=== PATIENT | female | born 1985 | race Two or more races ===

== ENCOUNTER 2016-12-02 05:24 | Emergency (ER) | payer SELFPAY ==
[~2016-12-02] VITALS: Ht 160 cm; Wt 52.2 kg
--- NOTE | 2016-12-02 06:19 | NUR ---
pt ambulatory w/ steady gait for c/o rlq abd pain, N/V x7 days w/ wt loss of 10lbs/wk and itching to whole body x 2 days, recently dx w/ rt kidney stones. AOx4, afebrile w/ resp even & unlabored, facial grimacing, continues to have nausea w/ no active vomiting, itching, denies diarrhea, no dysuria, no hematuria, moderate discomfort noted. pt in gown, on continuous monitoring. Pending further saroj arechiga MD.
--- NOTE | 2016-12-02 06:22 | NUR ---
DR. SANCHEZ AT BEDSIDE FOR FURTHER EVAL.
[2016-12-02] MEDS ORDERED: diphenhydrAMINE HCL 50 MG/ML VIAL IV ONE ×2 (06:30→08:30)
[2016-12-02] MEDS ORDERED: IV NS 0.9% 1,000 ML BAG IV ONE (06:30)
[2016-12-02] MEDS ORDERED: ONDANSETRON HCL/PF 4 MG/2 ML VIAL IVP ONE (06:30)
[2016-12-02] MEDS ORDERED: KETOROLAC TROMETHAMINE INJ 30 MG/ML VIAL IV ONE (06:30)
[2016-12-02] MEDS ORDERED: diphenhydrAMINE HCL 50 MG/ML VIAL ONE ×2 (06:40→08:32)
[2016-12-02] MEDS ORDERED: ONDANSETRON HCL/PF 4 MG/2 ML VIAL ONE ×2 (06:41→10:01)
[2016-12-02] MEDS ORDERED: KETOROLAC TROMETHAMINE INJ 30 MG/ML VIAL ONE (06:41)
[2016-12-02 06:42] LABS: BASOPHILS % (AUTO) 0.4 % (0.0-2.0); EOSINOPHILS % (AUTO) 0.5 % (0.0-6.0); HEMATOCRIT 33 % (33-45); LYMPHOCYTES # (AUTO) 3.1 /CMM (0.8-4.8); LYMPHOCYTES % (AUTO) 44.6 % (20.0-44.0); MEAN CORPUSCULAR HEMOGLOBIN 32 PG (26.0-33.0); MEAN CORPUSCULAR HGB CONC 33 g/dl (31.0-36.0); MEAN CORPUSCULAR VOLUME 95 fL (82-100); MONOCYTES # (AUTO) 0.3 /CMM (0.1-1.30); MONOCYTES % (AUTO) 3.7 % (2.0-12.0); NEUTROPHILS # (AUTO) 3.5 /CMM (1.8-8.9); NEUTROPHILS % (AUTO) 50.8 % (43.0-81.0); PLATELET COUNT (AUTO) 377 /CMM (150-450); RDW COEFFICIENT OF VARIATION 15.8 (11.5-15.0)
[2016-12-02 06:43] LABS: APPEARANCE,URINE CLEAR (CLEAR); BILIRUBIN,URINE NEGATIVE (NEGATIVE); BLOOD, URINE TRACE-INTA Ery/uL (NEGATIVE); COLOR,URINE YELLOW (YELLOW); KETONES,URINE NEGATIVE (NEGATIVE); LEUKOCYTE ESTERASE ,URINE NEGATIVE (NEGATIVE); NITRITE, URINE NEGATIVE (NEGATIVE); PH,URINE 6.5 (5.0-8.0); PROTEIN,URINE NEGATIVE (NEGATIVE); UGLUCOSE NEGATIVE (NEGATIVE); UROBILINOGEN,URINE 0.2 EU/dL (0.2)
[2016-12-02 06:46] LABS: BACTERIA,URINE Few /HPF (None Seen); WBC,URINE 0-2 /HPF (0-3)
[2016-12-02 06:47] LABS: PREGNANCY TEST URINE QUAL NEGATIVE (NEGATIVE)
[2016-12-02 06:57] LABS: POTASSIUM 3.4 mmol/L (3.5-5.1)
--- NOTE | 2016-12-02 07:09 | NUR ---
pt report continues to have sharp rlq abd pain, worse than before. Dr. Oneal notified.
[2016-12-02 07:13] LABS: ALBUMIN 3.3 g/dL (3.4-5.0); BILIRUBIN,TOTAL 0.2 mg/dL (0.2-1.0); CALCIUM, SERUM 8.2 mg/dL (8.5-10.1); CREATININE 0.8 mg/dL (0.6-1.3); TOTAL PROTEIN, SERUM 6.7 g/dL (6.4-8.2)
--- NOTE | 2016-12-02 07:15 | NUR ---
Report given to LEDA Han for TERRANCE.
[2016-12-02] MEDS ORDERED: MORPHINE SULFATE INJ 4 MG/ML DISP.SYRIN ONE ×3 (07:16→10:02)
--- NOTE | 2016-12-02 07:23 | NUR ---
PATIENT TRANSPORTED FOR CT ABD VIA WHEELCHAIR, PATIENT REMAINS IN STABLE CONDITION AT THIS TIME.
[2016-12-02] MEDS ORDERED: MORPHINE SULFATE INJ 2 MG/ML DISP.SYRIN IV ONE ×3 (07:30→10:00)
--- NOTE | 2016-12-02 08:30 | NUR ---
Patient is resting comfortably in bed with eyes closed. Easily aroused. VSS
--- NOTE | 2016-12-02 09:50 | NUR ---
DR SANCHEZ AT FOR AN UPDATE AND RE-EVAL.
[2016-12-02] MEDS ORDERED: ONDANSETRON HCL/PF 4 MG/2 ML VIAL IV ONE (10:00)
--- NOTE | 2016-12-02 10:18 | NUR ---
IV removed. Catheter intact and site benign. Pressure and 4x4 applied to site. No bleeding noted.Patient discharged to home in stable condition. Written and verbal after care instructions given. Patient verbalizes understanding of instruction.
[2016-12-02 10:20] VITALS: BP 110/66
== END 2016-12-02 10:22 | disposition home or self-care (01) ==
LOC: ER 05:26
DX: D18.09 Hemangioma of other sites (principal)
CPT/HCPCS: 36415; 74176; 76705; 80048; 80076; 81001; 83690; 84703; 85025; 96361; 96374; 96375; 96376; 99285; A4606; J1200 ×2; J1885; J2270 ×3; J2405 ×2; J7030; Z7610; 71250-TC; 81000-TC

== ENCOUNTER 2016-12-08 20:31 | Emergency (ER) | payer SELFPAY ==
[~2016-12-08] VITALS: Ht 160 cm; Wt 52.2 kg
--- NOTE | 2016-12-08 20:45 | NUR ---
PT AMBULATORY TO ER BED 12. C/O L FLANK PAIN. HX OF KIDNEY STONE. GOWNED AND PLACED ON MONITOR. AWAITINGMD EVAL.
--- NOTE | 2016-12-08 20:51 | NUR ---
DR BOOTH AT BEDSIDE FOR EVAL.
--- NOTE | 2016-12-08 20:59 | NUR ---
INSURANCE POLICY ISSUE CLERK AT BEDSIDE FOR BLOOD DRAW.
[2016-12-08] MEDS ORDERED: IV NS 0.9% 1,000 ML BAG IV ONE (21:00)
[2016-12-08] MEDS ORDERED: ONDANSETRON HCL/PF 4 MG/2 ML VIAL IVP ONE (21:00)
[2016-12-08] MEDS ORDERED: MORPHINE SULFATE INJ 2 MG/ML DISP.SYRIN IV ONE (21:00)
[2016-12-08] MEDS ORDERED: ONDANSETRON HCL/PF 4 MG/2 ML VIAL ONE (21:02)
[2016-12-08 21:03] LABS: BASOPHILS % (AUTO) 0.3 % (0.0-2.0); EOSINOPHILS % (AUTO) 0.3 % (0.0-6.0); HEMATOCRIT 35 % (33-45); HEMOGLOBIN 11.7 g/dL (11.5-14.8); LYMPHOCYTES # (AUTO) 1.7 /CMM (0.8-4.8); LYMPHOCYTES % (AUTO) 30.5 % (20.0-44.0); MEAN CORPUSCULAR HEMOGLOBIN 32 PG (26.0-33.0); MEAN CORPUSCULAR HGB CONC 33 g/dl (31.0-36.0); MEAN CORPUSCULAR VOLUME 95 fL (82-100); MONOCYTES # (AUTO) 0.5 /CMM (0.1-1.30); MONOCYTES % (AUTO) 8.3 % (2.0-12.0); NEUTROPHILS # (AUTO) 3.5 /CMM (1.8-8.9); NEUTROPHILS % (AUTO) 60.6 % (43.0-81.0); PLATELET COUNT (AUTO) 333 /CMM (150-450); RDW COEFFICIENT OF VARIATION 15.4 (11.5-15.0); RED BLOOD CELL COUNT(AUTO) 3.69 MIL/uL (4.0-5.2); WHITE BLOOD COUNT (AUTO) 5.7 K/uL (4.3-11.0)
[2016-12-08] MEDS ORDERED: MORPHINE SULFATE INJ 2 MG/ML DISP.SYRIN ONE (21:03)
[2016-12-08 21:13] LABS: CALCIUM, SERUM 9.1 mg/dL (8.5-10.1); CREATININE 0.9 mg/dL (0.6-1.3); POTASSIUM 3.5 mmol/L (3.5-5.1)
[2016-12-08 21:18] LABS: ALBUMIN 3.7 g/dL (3.4-5.0); BILIRUBIN,DIRECT 0.1 mg/dL (0.0-0.2); BILIRUBIN,TOTAL 0.5 mg/dL (0.2-1.0); TOTAL PROTEIN, SERUM 7.1 g/dL (6.4-8.2)
[2016-12-08 21:26] LABS: APPEARANCE,URINE Cloudy (CLEAR); BILIRUBIN,URINE MODERATE (NEGATIVE); BLOOD, URINE Large Ery/uL (NEGATIVE); KETONES,URINE 40 (NEGATIVE); LEUKOCYTE ESTERASE ,URINE Trace (NEGATIVE); NITRITE, URINE Negative (NEGATIVE); PH,URINE 6.5 (5.0-8.0); PROTEIN,URINE 100 mg/dl (NEGATIVE); UGLUCOSE Negative (NEGATIVE); UROBILINOGEN,URINE 0.2 EU/dL (0.2)
[2016-12-08] MEDS ORDERED: KETOROLAC TROMETHAMINE INJ 30 MG/ML VIAL IV ONE (21:30)
[2016-12-08] MEDS ORDERED: KETOROLAC TROMETHAMINE INJ 30 MG/ML VIAL ONE (21:31)
[2016-12-08 21:35] LABS: SQUAMOUS EPITHELIAL CELL,UR Many /HPF (None Seen)
[2016-12-08 21:38] LABS: BACTERIA,URINE Moderate /HPF (None Seen)
[2016-12-08 21:39] LABS: COLOR,URINE DARK YELLOW (YELLOW)
[2016-12-08] MEDS ORDERED: diphenhydrAMINE HCL 50 MG CAPSULE ONE (21:39)
[2016-12-08 21:40] LABS: MUCUS,URINE Few /LPF (None Seen)
--- NOTE | 2016-12-08 21:57 | NUR ---
Patient discharged to home in stable condition. Written and verbal after care instructions given. Patient verbalizes understanding of instruction.IV removed. Catheter intact and site benign. Pressure and 4x4 applied to site. No bleeding noted.
[2016-12-08 21:58] VITALS: BP 124/75
[2016-12-08] MEDS ORDERED: diphenhydrAMINE HCL 25 MG CAPSULE PO ONE (22:00)
[2016-12-13] MEDS ORDERED: SULF1TAB48 PO (08:32)
== END 2016-12-08 21:58 | disposition home or self-care (01) ==
LOC: ER 20:31
DX: N23 Unspecified renal colic (principal); E86.0 Dehydration
CPT/HCPCS: 36415; 80048-TC; 80076-TC; 81000-TC; 83690-TC; 84703-TC; 85025-TC; 87086-TC; A4606; J1885; J2270; J2405; J7030; Q0163; Z7610

== ENCOUNTER 2016-12-10 06:58 | Inpatient (IN) | payer MEDICAID ==
[~2016-12-10] VITALS: Ht 157.5 cm; Wt 49.9 kg
--- NOTE | 2016-12-10 07:15 | NUR ---
PATIENT BIB SELF C/O BILATERAL FLANK PAIN AND NAUSEA AND VOMITING. PATIENT IS A/OX 4. BREATHING EVEN AND UNLABORED. NO SOB. VITALS STABLE. SAFETY AND COMFORT MEASURES IN PLACE. AWAITING MD ORDERS.
--- NOTE | 2016-12-10 07:35 | NUR ---
NEW IV STARTED ON RAC, 20 G. BLOOD DRAWN AND SENT TO LAB.
[2016-12-10] MEDS ORDERED: ONDANSETRON HCL/PF 4 MG/2 ML VIAL ONE (07:38)
[2016-12-10] MEDS ORDERED: HYDROMORPHONE 1 MG/1 ML DISP.SYRIN ONE (07:39)
--- NOTE | 2016-12-10 07:49 | NUR ---
PATIENT MEDICATED PER MD ORDERS.
[2016-12-10 07:50] LABS: BASOPHILS % (AUTO) 0.4 % (0.0-2.0); EOSINOPHILS % (AUTO) 0.7 % (0.0-6.0); HEMATOCRIT 36 % (33-45); HEMOGLOBIN 11.8 g/dL (11.5-14.8); LYMPHOCYTES # (AUTO) 2.6 /CMM (0.8-4.8); LYMPHOCYTES % (AUTO) 51.7 % (20.0-44.0); MEAN CORPUSCULAR HEMOGLOBIN 32 PG (26.0-33.0); MEAN CORPUSCULAR HGB CONC 33 g/dl (31.0-36.0); MEAN CORPUSCULAR VOLUME 95 fL (82-100); MONOCYTES # (AUTO) 0.5 /CMM (0.1-1.30); MONOCYTES % (AUTO) 9.1 % (2.0-12.0); NEUTROPHILS # (AUTO) 1.9 /CMM (1.8-8.9); NEUTROPHILS % (AUTO) 38.1 % (43.0-81.0); PLATELET COUNT (AUTO) 329 /CMM (150-450); RDW COEFFICIENT OF VARIATION 17.3 (11.5-15.0); RED BLOOD CELL COUNT(AUTO) 3.74 MIL/uL (4.0-5.2); WHITE BLOOD COUNT (AUTO) 5.1 K/uL (4.3-11.0)
[2016-12-10 07:51] LABS: APPEARANCE,URINE CLOUDY (CLEAR); BILIRUBIN,URINE NEGATIVE (NEGATIVE); BLOOD, URINE 3+ Ery/uL (NEGATIVE); COLOR,URINE RED (YELLOW); KETONES,URINE NEGATIVE (NEGATIVE); LEUKOCYTE ESTERASE ,URINE 1+ (NEGATIVE); NITRITE, URINE NEGATIVE (NEGATIVE); PH,URINE 6.5 (5.0-8.0); PROTEIN,URINE 2+ mg/dl (NEGATIVE); UGLUCOSE NEGATIVE (NEGATIVE)
[2016-12-10] MEDS ORDERED: diphenhydrAMINE HCL 50 MG/ML VIAL ONE ×2 (07:53→09:06)
[2016-12-10 07:57] LABS: CALCIUM, SERUM 8.2 mg/dL (8.5-10.1); CARBON DIOXIDE 25 mmol/L (21-32); CHLORIDE 106 mmol/L (98-107); CREATININE 0.9 mg/dL (0.6-1.3); GLUCOSE 89 mg/dL (74-106); POTASSIUM 3.3 mmol/L (3.5-5.1); SODIUM SERUM 143 mmol/L (136-145); UREA NITROGEN, BLOOD 12 mg/dL (7-18)
[2016-12-10] MEDS ORDERED: diphenhydrAMINE HCL 50 MG/ML VIAL IV ONE ×3 (08:00→13:00)
[2016-12-10] MEDS ORDERED: HYDROMORPHONE INJ 2 MG/ML DISP.SYRIN IV ONE (08:00)
[2016-12-10] MEDS ORDERED: IV NS 0.9% 500 ML BAG IV ONE ×2 (08:00→09:30)
[2016-12-10] MEDS ORDERED: ONDANSETRON HCL/PF 4 MG/2 ML VIAL IVP ONE (08:00)
[2016-12-10] MEDS ORDERED: IV NS 0.9% 1,000 ML BAG IV ONE (08:00)
[2016-12-10 08:02] LABS: ALANINE AMINOTRANSFERASE 20 U/L (12-78); ALBUMIN 3.6 g/dL (3.4-5.0); ALKALINE PHOSPHATASE 44 U/L (46-116); ASPARTATE AMINOTRANSFERASE 15 U/L (15-37); BILIRUBIN,DIRECT 0.1 mg/dL (0.0-0.2); BILIRUBIN,TOTAL 0.4 mg/dL (0.2-1.0); LIPASE 133 U/L (73-393); TOTAL PROTEIN, SERUM 6.9 g/dL (6.4-8.2)
[2016-12-10 08:12] LABS: BACTERIA,URINE Few /HPF (None Seen); RBC,URINE TOO NUMEROUS TO COUN /HPF (0-2); SQUAMOUS EPITHELIAL CELL,UR Few /HPF (None Seen)
--- NOTE | 2016-12-10 08:17 | NUR ---
PATIENT TAKEN TO CT VIA WHEELCHAIR IN STABLE CONDITION.
--- NOTE | 2016-12-10 08:32 | NUR ---
PATIENT RETURNED FORM CT IN STABLE CONDITION.
--- NOTE | 2016-12-10 09:02 | NUR ---
DR ONTIVEROS AT BS FOR AN UPDATE AND RE-EVAL.
[2016-12-10] MEDS ORDERED: ALPR1TAB7 PO (09:10)
--- NOTE | 2016-12-10 09:10 | NUR ---
panel on-call paged
[2016-12-10] MEDS ORDERED: HYDROMORPHONE INJ 2 MG/ML DISP.SYRIN ONE (09:26)
[2016-12-10] MEDS ORDERED: HYDROMORPHONE 1 MG/1 ML DISP.SYRIN IV ONE (09:30)
--- NOTE | 2016-12-10 10:26 | NUR ---
REPORT GIVEN TO LEDA DIAZ FOR TERRANCE [facility] [id number]
--- NOTE | 2016-12-10 10:50 | NUR ---
patient transported to [id number] via wheelchair, LEDA Christiansen to provide lamar.
[2016-12-10 11:00] VITALS: BP 97/68
[2016-12-10 12:00] VITALS: BP 97/68
[2016-12-10] MEDS ORDERED: ACETAMINOPHEN 325 MG TABLET PO PRN (12:00)
[2016-12-10] MEDS ORDERED: ZOLPIDEM TARTRATE 5 MG TABLET PO PRN (12:00)
[2016-12-10] MEDS ORDERED: MAG HYDROX/AL HYDROX/SIMETH 30 ML UDC PO PRN (12:00)
[2016-12-10] MEDS ORDERED: diphenhydrAMINE HCL 50 MG/ML VIAL IV PRN (12:00)
[2016-12-10] MEDS ORDERED: MAGNESIUM HYDROXIDE 30 ML UDC PO PRN (12:00)
[2016-12-10] MEDS ORDERED: Z GUARD REMEDY 2 OZ OINT TP PRN (12:00)
--- NOTE | 2016-12-10 12:00 | NUR ---
RN NOTES PT BROUGHT ONTO UNIT FROM ER. IV ON RAC INTACT AND PATENT. PT ON RA, EVEN RESPIRATIONS, NO SOB. PT STATES SHE IS ITCHY AND HAS A LOT OF PAIN. SAFETY MEASURES ARE IN PLACE. WILL CONTINUE TO MONITOR.
[2016-12-10] MEDS: HYDROMORPHONE 1 MG/1 ML DISP.SYRIN IV PRN ×2 (12:03→16:03)
[2016-12-10] MEDS: IV D5/0.45 NACL 1,000 ML IV PRN (12:09)
[2016-12-10 12:57] LABS: AMYLASE 67 U/L (25-115); LIPASE 84 U/L (73-393)
[2016-12-10] MEDS: POTASSIUM CHLORIDE 20 MEQ TAB.PRT.SR PO SCH ×2 (13:05→13:32)
--- NOTE | 2016-12-10 13:09 | NUR ---
PT GIVEN TWO DOSES OF BENADRYL, 25 MG EACH IV FOR FULL DOSE OF 50 MG ORDERED.
[2016-12-10] MEDS: CEFTRIAXONE 1 G in IV D5W 50 ML IV SCH (13:32)
[2016-12-10] MEDS: HYDROCODONE/APAP 5/325MG 1 EACH TABLET PO PRN (14:27)
[2016-12-10 16:00] VITALS: BP 99/58
[2016-12-10] MEDS: ONDANSETRON HCL/PF 4 MG/2 ML VIAL IVP PRN ×2 (16:07→23:02)
[2016-12-10] MEDS: diphenhydrAMINE HCL 50 MG/ML VIAL IV PRN (18:57)
[2016-12-10] MEDS: HYDROMORPHONE INJ 2 MG/ML DISP.SYRIN IV PRN ×2 (18:57→22:56)
--- NOTE | 2016-12-10 19:09 | NUR ---
RN NOTES PT IS SITTING ON THE EDGE OF BED, COMFORTABLY. PT ON ROOM AIR SATING 100, NO SOB. IV ON RAC RUNNING D51/2 NS AT 75 ML/HR. PT GIVEN BENADRYL AND DILAUDID FOR PAIN AND ITCHING. ALL MEDS WERE GIVEN ORDERED. SAFETY MEASURES ARE IN PLACE, CALL LIGHT IS IN REACH. WILL ENDORSE TO TAR LEVELER RN FOR CONTINUITY OF CARE.
--- NOTE | 2016-12-10 19:33 | NUR ---
RN NOTE; RECEIVED PT IN BED AWAKE AND ALERT. BREATHING EVENLY. NO SOB. NAD. W/ C/O MILD ABD PAIN. REPORTED FEELING BETTER AFTER THE DILAUDID. US WIRELESS SALES ASSOCIATE AT THE BED SIDE FOR ECHO. NEEDS ATTENDED . BED LOW LOCKED , CALL LIGHT WITHIN REACH. WILL CONT TO MONITOR.
[2016-12-10 20:00] VITALS: BP 110/64
--- NOTE | 2016-12-10 23:03 | NUR ---
DILAUDID GIVEN FOR C/O SEVERE ABD PAIN . ALSO ZOFRAN GIVEN ORDERED FOR C/O NAUSEA. WILL CONT TO MONITOR
[2016-12-11] MEDS: diphenhydrAMINE HCL 50 MG/ML VIAL IV PRN ×5 (01:09→19:02)
--- NOTE | 2016-12-11 01:10 | NUR ---
BENADRYL IV GIVEN ORDERED FOR C/O ITCHINESS. WILL CONT TO MONITOR.
[2016-12-11] MEDS: HYDROMORPHONE INJ 2 MG/ML DISP.SYRIN IV PRN ×5 (04:01→23:24)
--- NOTE | 2016-12-11 04:02 | NUR ---
DILAUDID GIVEN FOR C/O SEVERE ABD PAIN . WILL CONT TO MONITOR
--- NOTE | 2016-12-11 06:23 | NUR ---
RN NOTE; PT IN BED AWAKE AN ALERT. BREATHING EVENLY. NO SOB. NO ACUTE EVENT DURING THE NIGHT. PT W/ CONSTANT REQUEST FOR PRN MEDS. GIVEN ORDERED PER PT'S REQUEST. NEEDS ATTENDED .ASSISTED W/ ADLS. NPO FOR ABD MRI TODAY. CALL LIGHT WITHIN REACH.WILL CONT TO MONITOR AND WILL ENDORSE TO AM SHIFT FOR TERRANCE.
--- NOTE | 2016-12-11 06:44 | NUR ---
TEXTED DR. DAIGLE FOR MRI APPROVAL.
[2016-12-11 06:53] LABS: ALBUMIN 3.3 g/dL (3.4-5.0); BILIRUBIN,TOTAL 0.2 mg/dL (0.2-1.0); CALCIUM, SERUM 8.2 mg/dL (8.5-10.1); CREATININE 0.8 mg/dL (0.6-1.3); MAGNESIUM 2.2 mg/dL (1.8-2.4); POTASSIUM 4.1 mmol/L (3.5-5.1); TOTAL PROTEIN, SERUM 6.7 g/dL (6.4-8.2)
--- NOTE | 2016-12-11 07:20 | NUR ---
PATIENT COMPLAINS OF ABDOMINAL PAIN. NO PAIN MEDS ARE AVAILABLE, WILL FOLLOW UP WITH
[2016-12-11] MEDS: PANTOPRAZOLE 40 MG TABLET.DR PO SCH (07:28)
[2016-12-11 07:43] LABS: BASOPHILS % (AUTO) 0.7 % (0.0-2.0); EOSINOPHILS # (AUTO) 0.1 /CMM (0.0-0.7); EOSINOPHILS % (AUTO) 1.8 % (0.0-6.0); HEMATOCRIT 35 % (33-45); HEMOGLOBIN 11.6 g/dL (11.5-14.8); LYMPHOCYTES # (AUTO) 2.7 /CMM (0.8-4.8); LYMPHOCYTES % (AUTO) 47.4 % (20.0-44.0); MEAN CORPUSCULAR HEMOGLOBIN 32 PG (26.0-33.0); MEAN CORPUSCULAR HGB CONC 33 g/dl (31.0-36.0); MEAN CORPUSCULAR VOLUME 96 fL (82-100); MONOCYTES # (AUTO) 0.4 /CMM (0.1-1.30); MONOCYTES % (AUTO) 7.3 % (2.0-12.0); NEUTROPHILS # (AUTO) 2.4 /CMM (1.8-8.9); NEUTROPHILS % (AUTO) 42.8 % (43.0-81.0); PLATELET COUNT (AUTO) 300 /CMM (150-450); RDW COEFFICIENT OF VARIATION 16.5 (11.5-15.0); RED BLOOD CELL COUNT(AUTO) 3.67 MIL/uL (4.0-5.2); RETICULOCYTE COUNT 0.7 % (0.6-2.5); WHITE BLOOD COUNT (AUTO) 5.7 K/uL (4.3-11.0)
[2016-12-11] MEDS: ONDANSETRON HCL/PF 4 MG/2 ML VIAL IVP PRN ×2 (07:57→16:41)
--- NOTE | 2016-12-11 07:57 | NUR ---
PATIENT COMPLAINS OF N/V. ZOFRAN ADMINISTERED PER ORDER.
[2016-12-11 08:00] VITALS: BP 128/87
--- NOTE | 2016-12-11 08:03 | NUR ---
PATIENT PAIN LEVEL 9/10. DILAUDID ADMINISTERED PER ORDER. BLOOD PRESSURE 128/79
[2016-12-11 08:11] LABS: INR 0.94 (0.87-1.13)
[2016-12-11 10:10] LABS: THYROID STIMULATING HORMONE 1.219 uIU/mL (0.358-3.74); URIC ACID 4.1 mg/dL (2.6-7.2)
[2016-12-11] MEDS ORDERED: HYDROMORPHONE 1 MG/1 ML DISP.SYRIN IV ONE (10:15)
--- NOTE | 2016-12-11 10:25 | NUR ---
PATIENT LEFT THE FLOOR FOR MRI WITH/WITHOUT CONTRAST Addendum: 12/11/16 at 1143 by LEDY PEARSON RN PATIENT IS BACK TO UNIT
--- NOTE | 2016-12-11 11:20 | NUR ---
PATIENT VERBALIZED CONCERNS ABOUT LIVER BIOPSY NEEDS TO BE DONE BASED ON INFORMATION RECEIVED IN THE ER. I SPOKE WITH DR BHATIA REGARDING PATIENT CONCERNS, DR BHATIA SAID THAT ANY BIOPSY WILL BE CONSULTED WITH THE ONCOLOGIST ON THE CASE, DR SUERO
[2016-12-11] MEDS: CEFTRIAXONE 1 G in IV D5W 50 ML IV SCH (12:02)
--- NOTE | 2016-12-11 12:03 | NUR ---
PATIENT PAIN LEVEL 9/10. DILAUDID ADMINISTERED PER ORDER. BLOOD PRESSURE 132/84
--- NOTE | 2016-12-11 13:05 | NUR ---
PATIENT COMPLAINS OF ITCHINESS. BENADRYL ADMINISTERED PER ORDER.
[2016-12-11 16:00] VITALS: BP 126/69
[2016-12-11] MEDS ORDERED: GADOVERSETAMIDE 2.5 MMOL/5 ML VIAL ONE (16:00)
--- NOTE | 2016-12-11 16:15 | NUR ---
PATIENT PAIN LEVEL 9/10. DILAUDID ADMINISTERED PER ORDER. BLOOD PRESSURE 126/69
--- NOTE | 2016-12-11 16:41 | NUR ---
PATIENT COMPLAINS OF N/V. ZOFRAN ADMINISTERED PER ORDER.
--- NOTE | 2016-12-11 17:12 | NUR ---
PATIENT LEFT THE UNIT AT 1710 WITH HER AND A DAY LIGHT RELIEF OPERATOR TO LOOK FOR AN LORRI, AFTER SHE HAS TOLD THAT THERE WAS NO LORRI IN THE BUILDING. PATIENT WAS ABUSIVE TOWARD STAFF, STAFF CALLED SECURITY. PATIENT LEFT THE BUILDING AND ACROSS THE STREET TO LOOK FOR AN LORRI, OCCUPIED BY HER A DAY LIGHT RELIEF OPERATOR AND A TERRA COTTA ROOFER HELPER. PATIENT CAM BACK TO THE UNIT AT 1735.
--- NOTE | 2016-12-11 17:20 | NUR ---
JUAN CONSULT ORDERED. DR BHATIA MADE AWARE
[2016-12-11] MEDS: HYDROCODONE/APAP 5/325MG 1 EACH TABLET PO PRN (17:44)
--- NOTE | 2016-12-11 17:44 | NUR ---
PATIENT COMPLAINS OF PAIN 09/19. NORCO ADMINISTERED PER ORDER. BLOOD PRESSURE 123/75
--- NOTE | 2016-12-11 18:41 | NUR ---
RN CLOSING NOTES PATIENT IS IN BED, ALERT AND ORIENTED TO NAME, PLACE AND TIME. PATIENT IS DEMANDING HER PRN MEDICATION AROUND THE CLOCK. PATIENT SHOWS SYMPTOMS OF EMOTIONAL DISTRESS. PER PATIENT, CONSTANT PAIN WITH A SHORT RELIEVE AFTER RECEIVING PAIN MEDS. PATIENT IS AMBULATORY. BED IN LOW POSITION, LOCKED AND TWO SIDE RAILS ARE UP. POTASSIUM LEVEL OF 3.3, POTASSIUM REPLACED. LOW H&H, 7.05/03 RESPECTFULLY; PER DR BUTCHER, NO NEED TO TRANSFUSE UNLESS PATIENT IS SYMPTOMATIC. OCCULT BLOOD STOOL SPECIMEN IS PENDING FOR COLLECTION. WILL ENDORSE TO SILK SCREEN PRINTER HELPER NURSE. Addendum: 12/11/16 at 1841 by LEDY PEARSON RN PLEASE DISREGARD THIS NOTES. WRONG PATIENT!!!!!!!!
--- NOTE | 2016-12-11 18:42 | NUR ---
PLEASE DISREGARDS BELOW NOTES FROM 1841. WRONG PATIENT
--- NOTE | 2016-12-11 18:52 | NUR ---
DR MUNSON AT BEDSIDE FOR PAIN MANAGEMENT
--- NOTE | 2016-12-11 18:52 | NUR ---
RN CLOSING NOTES PATIENT IS IN BED, ALERT AND ORIENTED TO NAME, PLACE AND TIME. PATIENT IS DEMANDING HER PRN MEDICATION AROUND THE CLOCK. PATIENT SHOWS SYMPTOMS OF EMOTIONAL DISTRESS. PER PATIENT, CONSTANT PAIN WITH A SHORT RELIEVE AFTER RECEIVING PAIN MEDS. PATIENT IS AMBULATORY. BED IN LOW POSITION, LOCKED AND TWO SIDE RAILS ARE UP. NEW IV INSERTED TODAY 22G. IV SITE IS INTACT AND PATENT. WILL ENDORSE TO LEGAL SERVICES MANAGER NURSE.
[2016-12-11] MEDS ORDERED: HYDROMORPHONE 1 MG/1 ML DISP.SYRIN ONE (20:32)
[2016-12-11] MEDS: HYDROCODONE/APAP 10/325MG 1 EA TABLET PO PRN (20:38)
[2016-12-11 20:44] VITALS: BP 142/94
[2016-12-12] MEDS: ONDANSETRON HCL/PF 4 MG/2 ML VIAL IVP PRN ×4 (01:08→21:01)
[2016-12-12] MEDS: HYDROCODONE/APAP 10/325MG 1 EA TABLET PO PRN ×5 (01:13→20:04)
[2016-12-12] MEDS: diphenhydrAMINE HCL 50 MG/ML VIAL IV PRN ×4 (04:08→23:44)
[2016-12-12] MEDS: HYDROMORPHONE INJ 2 MG/ML DISP.SYRIN IV PRN ×5 (04:09→21:48)
[2016-12-12] MEDS: IV D5/0.45 NACL 1,000 ML IV PRN ×2 (06:31→21:48)
[2016-12-12 06:33] LABS: BASOPHILS % (AUTO) 0.5 % (0.0-2.0); EOSINOPHILS # (AUTO) 0.1 /CMM (0.0-0.7); EOSINOPHILS % (AUTO) 2.2 % (0.0-6.0); HEMATOCRIT 38 % (33-45); HEMOGLOBIN 12.4 g/dL (11.5-14.8); LYMPHOCYTES # (AUTO) 2.5 /CMM (0.8-4.8); LYMPHOCYTES % (AUTO) 53.3 % (20.0-44.0); MEAN CORPUSCULAR HEMOGLOBIN 32 PG (26.0-33.0); MEAN CORPUSCULAR HGB CONC 33 g/dl (31.0-36.0); MEAN CORPUSCULAR VOLUME 95 fL (82-100); MONOCYTES # (AUTO) 0.3 /CMM (0.1-1.30); MONOCYTES % (AUTO) 7.1 % (2.0-12.0); NEUTROPHILS # (AUTO) 1.7 /CMM (1.8-8.9); NEUTROPHILS % (AUTO) 36.9 % (43.0-81.0); PLATELET COUNT (AUTO) 314 /CMM (150-450); RDW COEFFICIENT OF VARIATION 15.9 (11.5-15.0); RED BLOOD CELL COUNT(AUTO) 3.94 MIL/uL (4.0-5.2); WHITE BLOOD COUNT (AUTO) 4.7 K/uL (4.3-11.0)
[2016-12-12 06:43] LABS: CALCIUM, SERUM 8.8 mg/dL (8.5-10.1); CREATININE 0.8 mg/dL (0.6-1.3); MAGNESIUM 2.1 mg/dL (1.8-2.4); PHOSPHORUS 3.7 mg/dL (2.5-4.9); POTASSIUM 3.8 mmol/L (3.5-5.1)
--- NOTE | 2016-12-12 07:15 | NUR ---
MS RN NOTES RECEIVED PATIENT IN BED, AWAKE. A/O X4. PATIENT APPEARS ANXIOUS, ON ROOM AIR, NO SOB. PER PATIENT, SHE IS TAKING DILAUDID IV FOR PAIN. EDUCATE AND DISCUSS PAIN MANAGEMENT REGIMEN TO PATIENT, VERBALIZED UNDERSTANDING. IV D5 1/2 NS INFUSING AT 75ML/HR, TOLERATING WELL. CALL LIGHT WITHIN REACH. WILL CONT TO MONITOR.
--- NOTE | 2016-12-12 07:17 | NUR ---
MS TOMPKINS INITIAL NOTE PT REMAINED STABLE DURING CELL TECHNICIAN, NO SIGNIFICANT CHANGE IN CONDITION NOTED, WILL ENDORSE TO INCOMING NURSE FOR TERRANCE. Addendum: 12/12/16 at 0721 by PHAN CLARK RN CLOSING NOTE
[2016-12-12] MEDS: PANTOPRAZOLE 40 MG TABLET.DR PO SCH (07:45)
[2016-12-12 08:00] VITALS: BP 123/76
[2016-12-12 11:12] LABS: AFP, TUMOR MARKER 2.5 ng/mL (0.0-8.3); CANCER AG, 125 8.5 U/mL (0.0-38.1); CANCER AG, 15-3 9.5 U/mL (0.0-25.0); CARCINOEMBRYONIC AG (CEA) 0.8 ng/mL (0.0-4.7)
[2016-12-12] MEDS: CEFTRIAXONE 1 G in IV D5W 50 ML IV SCH (11:45)
[2016-12-12 14:13] LABS: CA 27.29 7.5 U/mL (0.0-38.6)
[2016-12-12 16:00] VITALS: BP_SYST 104; BP_DIAS 51; BP_DIAS 61
--- NOTE | 2016-12-12 18:18 | NUR ---
MS RN CLOSING NOTES PATIENT IN BED, NOT IN DISTRESS. EPISODES OF ABDOMINAL PAIN DURING THE SHIFT. ON PAIN MANAGEMENT, BOTH ORAL AND IV PAIN MEDICATION. PATIENT IS SEEN BY DR. GARCIA/SURGEON TODAY, PER MD NO SURGICAL RECOMMENDATION AT THIS POINT, PATIENT IS AWARE. PLACE CALL LIGHT WITHIN REACH. FOR PSYCHE EVAL ORDERED. WILL ENDORSE TO COMMUNITY DEVELOPMENT DIRECTOR RN FOR CONTINUITY OF CARE.
--- NOTE | 2016-12-12 19:30 | NUR ---
RN NOTES RECEIVED PATIENT IN BED AWAKE, AO X 3, ABLE TO MAKE NEEDS KNOWN. NO ACUTE DISTRESS NOTED. MONITORED FOR PAIN. IV SITE PATENT, INTACT; IVF INFUSING ORDERED. ON LOW BED WITH BILATERAL UPPER SIDE RAILS UP. CALL LIGHT WITHIN EASY REACH. WILL CONTINUE TO MONITOR.
[2016-12-12 20:00] VITALS: BP 118/70
--- NOTE | 2016-12-12 23:45 | NUR ---
RN NOTES PATIENT C/O ITCHINESS. BENADRYL GIVEN ORDERED. WILL CONTINUE TO MONITOR.
[2016-12-13] MEDS: HYDROMORPHONE INJ 2 MG/ML DISP.SYRIN IV PRN ×3 (01:54→11:00)
[2016-12-13] MEDS: ONDANSETRON HCL/PF 4 MG/2 ML VIAL IVP PRN ×2 (04:56→10:59)
[2016-12-13] MEDS: diphenhydrAMINE HCL 50 MG/ML VIAL IV PRN ×2 (05:47→12:09)
--- NOTE | 2016-12-13 06:04 | NUR ---
RN NOTES PATIENT IN BED WITH EYES CLOSED; EASILY AROUSABLE. RESPIRATIONS EVEN. NO SIGNS OF PAIN NOTED. NEEDS ATTENDED. SAFETY PRECAUTIONS AND COMFORT MEASURES IN PLACE. WILL GIVE REPORT TO DAY SHIFT FOR CONTINUITY OF CARE.
[2016-12-13 06:44] LABS: BASOPHILS % (AUTO) 0.6 % (0.0-2.0); EOSINOPHILS # (AUTO) 0.1 /CMM (0.0-0.7); EOSINOPHILS % (AUTO) 2.5 % (0.0-6.0); HEMATOCRIT 37 % (33-45); HEMOGLOBIN 12.4 g/dL (11.5-14.8); LYMPHOCYTES # (AUTO) 2.4 /CMM (0.8-4.8); LYMPHOCYTES % (AUTO) 50.4 % (20.0-44.0); MEAN CORPUSCULAR HEMOGLOBIN 32 PG (26.0-33.0); MEAN CORPUSCULAR HGB CONC 33 g/dl (31.0-36.0); MEAN CORPUSCULAR VOLUME 95 fL (82-100); MONOCYTES # (AUTO) 0.3 /CMM (0.1-1.30); MONOCYTES % (AUTO) 6.6 % (2.0-12.0); NEUTROPHILS # (AUTO) 1.9 /CMM (1.8-8.9); NEUTROPHILS % (AUTO) 39.9 % (43.0-81.0); PLATELET COUNT (AUTO) 334 /CMM (150-450); RDW COEFFICIENT OF VARIATION 15.9 (11.5-15.0); RED BLOOD CELL COUNT(AUTO) 3.93 MIL/uL (4.0-5.2); WHITE BLOOD COUNT (AUTO) 4.8 K/uL (4.3-11.0)
[2016-12-13 07:08] LABS: ALBUMIN 3.5 g/dL (3.4-5.0); BILIRUBIN,DIRECT 0.1 mg/dL (0.0-0.2); BILIRUBIN,TOTAL 0.3 mg/dL (0.2-1.0); TOTAL PROTEIN, SERUM 6.7 g/dL (6.4-8.2)
[2016-12-13 07:14] LABS: CALCIUM, SERUM 8.5 mg/dL (8.5-10.1); CREATININE 0.8 mg/dL (0.6-1.3); MAGNESIUM 2.1 mg/dL (1.8-2.4); PHOSPHORUS 3.7 mg/dL (2.5-4.9); POTASSIUM 3.3 mmol/L (3.5-5.1)
[2016-12-13 08:00] VITALS: BP 117/78
--- NOTE | 2016-12-13 08:00 | NUR ---
MS RN NOTES PT RESTING IN BED, AWAKE, A & O TIEMS 4. NO ACUTE DISTRESS, NO DISCOMFORT NOTED. PERIPHERAL IV LINE INTACT PATENT ON RIGHT HAND. BED IN LOW LOCKED POSITION. CALL LIGHT WITHIN REACH. CONTINUING TO MONITOR.
[2016-12-13] MEDS: PANTOPRAZOLE 40 MG TABLET.DR PO SCH (08:08)
[2016-12-13] MEDS ORDERED: SULF1TAB48 PO (08:32)
[2016-12-13] MEDS ORDERED: hydrOXYzine PAMOATE 25 MG CAPSULE PO PRN (09:00)
[2016-12-13] MEDS: POTASSIUM CHLORIDE 20 MEQ TAB.PRT.SR PO SCH ×3 (10:02→12:00)
[2016-12-13] MEDS ORDERED: POTASSIUM CHLORIDE 20 MEQ TAB.PRT.SR PO ONE (10:30)
[2016-12-13] MEDS: CEFTRIAXONE 1 G in IV D5W 50 ML IV SCH (11:19)
--- NOTE | 2016-12-13 12:45 | NUR ---
MS RN NOTES PATIENT RESTING IN BED. HAD C/O ABDOMINAL PAIN & NAUSEA, PRN MEDS ADMINISTERED ORDERED BY MD & WAS EFFECTIVE. PT IN STABLE CONDITION AT THIS TIME. TOLERATED MEALS WELL. TIGIST LIGHT WITHIN REACH. ALL NEEDS MET. OBSERVING CLOSELY.
--- NOTE | 2016-12-13 14:57 | NUR ---
MS RN NOTES PATIENT DISCHARGED HOME WITH . IN STABLE CONDITION. MD AWARE OF ALL ABNORMAL LABS. DISCHARGE TEACHING PROVIDED, VERBALIZED UNDERSTANDING. BELONGING ALL ACCOUNTED FOR, BELONGING LIST SIGNED. DISCHARGE PROTOCOL FOLLOWED. PRESCRIPTION GIVEN TO PATIENT. IV REMOVED WITH MINIMAL BLEEDING. ID BAND REMOVED. ESCORTED TO CAR WITH .
== END 2016-12-13 14:57 | disposition home or self-care (01) | DRG 254 ==
LOC: ER 07:02 → MED 10:07
PROVIDERS: ADMIT Internal Medicine; ATTEND Internal Medicine
DX: D18.03 Hemangioma of intra-abdominal structures (principal); E87.2 Acidosis; N39.0 Urinary tract infection, site not specified; Z90.49 Acquired absence of other specified parts of digestive tract; Z87.442 Personal history of urinary calculi; Z80.9 Family history of malignant neoplasm, unspecified; Z76.5 Malingerer [conscious simulation]; N20.0 Calculus of kidney; K52.9 Noninfective gastroenteritis and colitis, unspecified; E87.6 Hypokalemia; E86.0 Dehydration; B96.89 Other specified bacterial agents as the cause of diseases classified elsewhere; F32.9 Major depressive disorder, single episode, unspecified; L29.9 Pruritus, unspecified; F43.22 Adjustment disorder with anxiety
CPT/HCPCS: 36415; 71010-TC; 71250-TC; 74183-TC; 76705-TC; 80048-TC; 80053-TC; 80061-TC; 80076-TC; 81000-TC; 82105; 82140-TC; 82150-TC; 82306; 82378; 83540-TC; 83605-TC; 83615-TC; 83690-TC; 83735-TC; 84100-TC; 84443-TC; 84550-TC; 84703-TC; 85025-TC; 85045-TC; 85652-TC; 85730-TC; 86300; 86301; 86304; 87040-TC; 87081-TC; 87086-TC; 87186-TC; 93307-TC; A4606; A9579; J0696; J1170; J1200; J2405; J3490; J7030; J7040; J7060; Z7610

== ENCOUNTER 2016-12-29 06:16 | Emergency (ER) | payer MEDICAID ==
[~2016-12-29] VITALS: Ht 160 cm; Wt 54.4 kg
[~2016-12-29 06:16] MED LIST: ALPR1TAB7 PO; SULF1TAB48 PO
[2016-12-29] MEDS ORDERED: diphenhydrAMINE HCL 50 MG/ML VIAL ONE (07:18)
[2016-12-29] MEDS ORDERED: ONDANSETRON HCL/PF 4 MG/2 ML VIAL ONE (07:19)
[2016-12-29] MEDS ORDERED: IV NS 0.9% 1,000 ML BAG IV ONE (07:30)
[2016-12-29] MEDS ORDERED: ONDANSETRON HCL/PF 4 MG/2 ML VIAL IVP ONE (07:30)
[2016-12-29] MEDS ORDERED: diphenhydrAMINE HCL 50 MG/ML VIAL IV ONE (07:30)
[2016-12-29 07:38] LABS: BASOPHILS % (AUTO) 0.7 % (0.0-2.0); EOSINOPHILS % (AUTO) 0.1 % (0.0-6.0); HEMATOCRIT 34 % (33-45); HEMOGLOBIN 11.4 g/dL (11.5-14.8); LYMPHOCYTES # (AUTO) 2.3 /CMM (0.8-4.8); LYMPHOCYTES % (AUTO) 33.8 % (20.0-44.0); MEAN CORPUSCULAR HEMOGLOBIN 31 PG (26.0-33.0); MEAN CORPUSCULAR HGB CONC 33 g/dl (31.0-36.0); MEAN CORPUSCULAR VOLUME 93 fL (82-100); MONOCYTES # (AUTO) 0.4 /CMM (0.1-1.30); MONOCYTES % (AUTO) 6.4 % (2.0-12.0); PLATELET COUNT (AUTO) 390 /CMM (150-450); RDW COEFFICIENT OF VARIATION 16.4 (11.5-15.0); WHITE BLOOD COUNT (AUTO) 6.7 K/uL (4.3-11.0)
[2016-12-29 07:47] LABS: APPEARANCE,URINE CLOUDY (CLEAR); BILIRUBIN,URINE NEGATIVE (NEGATIVE); BLOOD, URINE NEGATIVE Ery/uL (NEGATIVE); COLOR,URINE YELLOW (YELLOW); KETONES,URINE NEGATIVE (NEGATIVE); LEUKOCYTE ESTERASE ,URINE NEGATIVE (NEGATIVE); NITRITE, URINE NEGATIVE (NEGATIVE); PH,URINE 7.5 (5.0-8.0); PROTEIN,URINE NEGATIVE (NEGATIVE); UGLUCOSE NEGATIVE (NEGATIVE); UROBILINOGEN,URINE 0.2 EU/dL (0.2)
[2016-12-29 07:49] LABS: RBC,URINE 0-2 /HPF (0-2); WBC,URINE 0-2 /HPF (0-3)
[2016-12-29 07:50] LABS: BACTERIA,URINE Few /HPF (None Seen); MUCUS,URINE Moderate /LPF (None Seen); URINE AMORPHOUS URATE Moderate /HPF (None Seen)
[2016-12-29 07:55] LABS: ALBUMIN 3.7 g/dL (3.4-5.0); BILIRUBIN,DIRECT 0.1 mg/dL (0.0-0.2); BILIRUBIN,TOTAL 0.3 mg/dL (0.2-1.0); CALCIUM, SERUM 8.6 mg/dL (8.5-10.1); CREATININE 0.9 mg/dL (0.6-1.3); POTASSIUM 3.8 mmol/L (3.5-5.1); TOTAL PROTEIN, SERUM 7.1 g/dL (6.4-8.2)
[2016-12-29] MEDS ORDERED: TRAMADOL HCL 50 MG TABLET ONE (08:08)
[2016-12-29] MEDS ORDERED: TRAMADOL HCL 50 MG TABLET PO ONE (08:30)
--- NOTE | 2016-12-29 09:04 | NUR ---
IV removed. Catheter intact and site benign. Pressure and 4x4 applied to site. No bleeding noted.
--- NOTE | 2016-12-29 09:04 | NUR ---
Kajal milan in ED - 12/29/16 at 0918 by ANDREY Patient discharged to home in stable condition. Written and verbal after care instructions given. Patient verbalizes understanding of instruction.
--- NOTE | 2016-12-29 09:18 | NUR ---
HOLD DISCHARGE PER DR BOLTON. WILL CHECK SERUM NÉSTOR. LAB CALLED.
--- NOTE | 2016-12-29 09:45 | NUR ---
Patient discharged to home in stable condition. Written and verbal after care instructions given. Patient verbalizes understanding of instruction. Patient ambulates out of ER with stable gait.
[2016-12-29 09:46] VITALS: BP 102/65
== END 2016-12-29 09:46 | disposition home or self-care (01) ==
LOC: ER 06:16
DX: R10.9 Unspecified abdominal pain (principal)
CPT/HCPCS: 36415; 80048-TC; 80076-TC; 80305; 81000-TC; 83690-TC; 85025-TC; 87086-TC; A4606; G0480; J1200; J2405; J7030; J7040; Z7610

== ENCOUNTER 2017-01-06 11:57 | Emergency (ER) | payer MEDICAID ==
[~2017-01-06] VITALS: Ht 147.3 cm; Wt 63.5 kg
--- NOTE | 2017-01-06 11:57 | NUR ---
CAME TO ER FOR MULTIPLE TIMES FOR SAME REASON L FLANK PAIN
[2017-01-06 14:07] LABS: BASOPHILS # (AUTO) 0.3 /CMM (0.0-0.2); BASOPHILS % (AUTO) 4.5 % (0.0-2.0); EOSINOPHILS % (AUTO) 0.5 % (0.0-6.0); HEMATOCRIT 36 % (33-45); LYMPHOCYTES # (AUTO) 1.3 /CMM (0.8-4.8); LYMPHOCYTES % (AUTO) 21.9 % (20.0-44.0); MEAN CORPUSCULAR HEMOGLOBIN 31 PG (26.0-33.0); MEAN CORPUSCULAR HGB CONC 33 g/dl (31.0-36.0); MEAN CORPUSCULAR VOLUME 93 fL (82-100); MONOCYTES # (AUTO) 0.2 /CMM (0.1-1.30); NEUTROPHILS # (AUTO) 4.2 /CMM (1.8-8.9); NEUTROPHILS % (AUTO) 69.1 % (43.0-81.0); PLATELET COUNT (AUTO) 401 /CMM (150-450); RED BLOOD CELL COUNT(AUTO) 3.88 MIL/uL (4.0-5.2)
[2017-01-06 14:19] LABS: CREATININE 0.9 mg/dL (0.6-1.3); POTASSIUM 4.5 mmol/L (3.5-5.1)
[2017-01-06 14:25] LABS: ALBUMIN 3.9 g/dL (3.4-5.0); BILIRUBIN,DIRECT 0.2 mg/dL (0.0-0.2); BILIRUBIN,TOTAL 0.7 mg/dL (0.2-1.0); CALCIUM, SERUM 9.3 mg/dL (8.5-10.1); TOTAL PROTEIN, SERUM 7.5 g/dL (6.4-8.2)
[2017-01-06 14:27] LABS: BILIRUBIN,URINE Negative (NEGATIVE); BLOOD, URINE Trace-intact Ery/uL (NEGATIVE); KETONES,URINE Negative (NEGATIVE); LEUKOCYTE ESTERASE ,URINE Negative (NEGATIVE); NITRITE, URINE Negative (NEGATIVE); PROTEIN,URINE 30 mg/dl (NEGATIVE); UGLUCOSE Negative (NEGATIVE); UROBILINOGEN,URINE 0.2 EU/dL (0.2)
[2017-01-06 14:28] LABS: APPEARANCE,URINE Hazy (CLEAR); COLOR,URINE Dark Yellow (YELLOW)
[2017-01-06 14:30] LABS: PREGNANCY TEST URINE QUAL NEGATIVE (NEGATIVE)
[2017-01-06 14:34] LABS: BACTERIA,URINE None seen /HPF (None Seen); SQUAMOUS EPITHELIAL CELL,UR Moderate /HPF (None Seen)
[2017-01-06 14:35] LABS: MUCUS,URINE Few /LPF (None Seen)
[2017-01-06 15:37] VITALS: BP 115/81
== END 2017-01-06 15:37 | disposition home or self-care (01) ==
LOC: ER 12:02
DX: N23 Unspecified renal colic (principal); G89.29 Other chronic pain; Z98.890 Other specified postprocedural states
CPT/HCPCS: 36415; 80048-TC; 80076-TC; 81000-TC; 83690-TC; 84703-TC; 85025-TC; A4606; Q0162; Q0163; Z7610